=== PATIENT | female | born 1935 | race African-American/Black ===

== ENCOUNTER 2022-01-17 21:45 | Inpatient (IN) | payer MEDICARE ==
[~2022-01-17] VITALS: Ht 172.7 cm; Wt 59.0 kg
[~2022-01-17 21:45] MED LIST: ASPI-1497 PO; BUME2TAB34 MT; CALC-889 MT; CARB-299 MT; DIGO125T80 MT; DULO20CA18 MT; FLUT16SP15 BOTHNSTRLS; GABA-533 MT; METO-396 PO; METO2.5T2 MT; POTA20TA82 MT; TOPUD PO
[2022-01-17 22:00] VITALS: BP 130/57
[2022-01-17] MEDS ORDERED: NALOXONE HCL 0.4 MG/ML 1ML VIAL IV PRN (23:00)
[2022-01-17] MEDS ORDERED: IPRATROPIUM/ALBUTEROL 0.5-3(2.5)MG/3ML NEB HHN PRN (23:00)
[2022-01-17] MEDS ORDERED: MAGNESIUM/ALUMINUM HYDROXIDE/SIMETHICONE 30ML UDC PO PRN (23:00)
[2022-01-17] MEDS ORDERED: ONDANSETRON HCL 4MG/2ML INJ IV PRN (23:00)
[2022-01-17] MEDS ORDERED: CLONIDINE 0.1MG TABLET PO PRN (23:00)
[2022-01-17] MEDS: ACETAMINOPHEN 325MG TABLET PO PRN (23:35)
[2022-01-17] MEDS: CEPHALEXIN 250MG CAPSULE PO SCH (23:35)
[2022-01-18] MEDS: CEPHALEXIN 250MG CAPSULE PO SCH ×3 (05:23→17:08)
[2022-01-18 08:00] VITALS: BP 125/47
[2022-01-18] MEDS: FAMOTIDINE 20MG TABLET PO SCH (08:17)
[2022-01-18] MEDS: BUMETANIDE 1MG TABLET PO SCH ×2 (08:17→17:03)
[2022-01-18] MEDS: CALCIUM CARBONATE/VITAMIN D3 500MG TABLET PO SCH ×2 (08:17→17:06)
[2022-01-18] MEDS: DOCUSATE SODIUM 100MG CAPSULE PO SCH ×2 (08:17→17:02)
[2022-01-18] MEDS: CARBIDOPA/LEVODOPA 25/100MG TABLET PO SCH ×4 (08:18→22:06)
[2022-01-18] MEDS: DULOXETINE HCL 20MG DR CAPSULE PO SCH (08:20)
[2022-01-18 08:22] LABS: HEMATOCRIT. 26.3 % (36.0-48.0); HEMOGLOBIN. 8.8 g/dL (12.0-16.0); MEAN CORPUSCULAR HEMOGLOBIN 26.8 pg (28.0-32.0); MEAN CORPUSCULAR VOLUME 80.6 fL (81.0-99.0); MEAN PLATELET VOLUME 9.2 fl (7.4-10.4); PLATELET 206 x1000/uL (130-400); RED BLOOD CELL COUNT 3.26 mill/uL (4.2-5.4)
[2022-01-18] MEDS: BACITRACIN 15GM TUBE TOP SCH (08:22)
[2022-01-18 08:29] LABS: CHLORIDE 101 mEq/L (98-107)
[2022-01-18] MEDS: HYDROCODONE/ACETAMINOPHEN 5/325MG TABLET PO PRN (12:39)
[2022-01-18 13:13] LABS: CLARITY URINE CLEAR (CLEAR); COLOR URINE YELLOW (YELLOW); KETONES URINE TRACE (NEGATIVE); LEUKOCYTE ESTERASE URINE NEGATIVE (NEGATIVE); NITRITE URINE NEGATIVE (NEGATIVE); OCCULT BLOOD URINE NEGATIVE (NEGATIVE); PROTEIN URINE NEGATIVE (NEGATIVE); SPECIFIC GRAVITY URINE 1.016 (1.005-1.030)
[2022-01-18 13:28] LABS: PLATELET ESTIMATE NORMAL
[2022-01-18] MEDS: CALCITONIN,SALMON, 3.7 ML NASAL SPRAY ONENSTRL SCH (17:02)
[2022-01-18] MEDS: DIGOXIN 125MCG TABLET PO SCH (17:08)
[2022-01-18 20:00] VITALS: BP_SYST 105; BP_SYST 97; BP_DIAS 52; BP_DIAS 65
[2022-01-18 21:00] VITALS: BP 112/70
[2022-01-18] MEDS: RYTARY PO SCH (21:00)
[2022-01-18] MEDS: GABAPENTIN 400MG CAPSULE PO SCH (22:06)
[2022-01-19] MEDS: CEPHALEXIN 250MG CAPSULE PO SCH ×4 (02:01→18:43)
[2022-01-19 06:35] LABS: HEMATOCRIT. 25.5 % (36.0-48.0); HEMOGLOBIN. 8.5 g/dL (12.0-16.0); MEAN CORPUSCULAR HEMOGLOBIN 26.7 pg (28.0-32.0); MEAN CORPUSCULAR VOLUME 79.9 fL (81.0-99.0); MEAN PLATELET VOLUME 8.6 fl (7.4-10.4); PLATELET 199 x1000/uL (130-400); RED BLOOD CELL COUNT 3.19 mill/uL (4.2-5.4)
[2022-01-19 07:35] LABS: CHLORIDE 100 mEq/L (98-107)
[2022-01-19 07:48] LABS: TOTAL IRON BINDING CAPACITY 324 ug/dL (250-450)
[2022-01-19 08:00] VITALS: BP 108/50
[2022-01-19 08:16] LABS: FOLIC ACID (FOLATE) SERUM 10.1 ng/mL (>5.38)
[2022-01-19] MEDS: DULOXETINE HCL 20MG DR CAPSULE PO SCH (08:47)
[2022-01-19] MEDS: FAMOTIDINE 20MG TABLET PO SCH (08:47)
[2022-01-19] MEDS: CALCIUM CARBONATE/VITAMIN D3 500MG TABLET PO SCH ×2 (08:51→18:17)
[2022-01-19] MEDS: BUMETANIDE 1MG TABLET PO SCH ×2 (08:58→18:19)
[2022-01-19] MEDS: DOCUSATE SODIUM 100MG CAPSULE PO SCH ×2 (08:59→18:17)
[2022-01-19] MEDS: CARBIDOPA/LEVODOPA 25/100MG TABLET PO SCH ×4 (09:04→22:23)
[2022-01-19] MEDS: CALCITONIN,SALMON, 3.7 ML NASAL SPRAY ONENSTRL SCH (09:05)
[2022-01-19] MEDS: BACITRACIN 15GM TUBE TOP SCH (10:29)
[2022-01-19] MEDS ORDERED: POTASSIUM CHLORIDE 20MEQ TABLET SR PO NR (14:45)
[2022-01-19 16:04] LABS: PLATELET ESTIMATE NORMAL
[2022-01-19] MEDS ORDERED: VANCOMYCIN 1500MG in DEXTROSE 5% WATER 250ML IV NR (18:00)
[2022-01-19] MEDS: FERROUS SULFATE 325MG TABLET PO SCH (18:17)
[2022-01-19] MEDS: HYDROCODONE/ACETAMINOPHEN 5/325MG TABLET PO PRN ×2 (18:22→18:23)
[2022-01-19] MEDS: DIGOXIN 125MCG TABLET PO SCH (18:42)
[2022-01-19 20:28] VITALS: BP 112/38
[2022-01-19] MEDS: RYTARY PO SCH (21:00)
[2022-01-19] MEDS: GABAPENTIN 400MG CAPSULE PO SCH (22:24)
[2022-01-20] MEDS: CEPHALEXIN 250MG CAPSULE PO SCH ×4 (06:26→17:08)
[2022-01-20 07:18] LABS: BASOPHILS % 0.5 % (0.0-2.0); EOSINOPHILS % 0.5 % (0.0-5.0); HEMOGLOBIN. 8.1 g/dL (12.0-16.0); LYMPHOCYTES % 8.5 % (20.0-50.0); MEAN CORPUSCULAR HEMOGLOBIN 26.5 pg (28.0-32.0); MEAN CORPUSCULAR VOLUME 78.6 fL (81.0-99.0); MEAN PLATELET VOLUME 8.8 fl (7.4-10.4); MONOCYTES % 11.5 % (2.0-8.0); PLATELET 199 x1000/uL (130-400); RED BLOOD CELL COUNT 3.05 mill/uL (4.2-5.4); RED CELL DISTRIBUTION WIDTH 17.3 % (11.6-14.6)
[2022-01-20 08:00] VITALS: BP 106/54
[2022-01-20] MEDS: DULOXETINE HCL 20MG DR CAPSULE PO SCH (08:34)
[2022-01-20] MEDS: DOCUSATE SODIUM 100MG CAPSULE PO SCH ×2 (08:34→17:07)
[2022-01-20] MEDS: FERROUS SULFATE 325MG TABLET PO SCH ×3 (08:34→17:08)
[2022-01-20] MEDS: CALCITONIN,SALMON, 3.7 ML NASAL SPRAY ONENSTRL SCH (08:34)
[2022-01-20] MEDS: FAMOTIDINE 20MG TABLET PO SCH (08:34)
[2022-01-20] MEDS: BUMETANIDE 1MG TABLET PO SCH ×2 (08:35→17:00)
[2022-01-20] MEDS: ASCORBIC ACID 500 MG TABLET PO SCH (08:35)
[2022-01-20] MEDS: CALCIUM CARBONATE/VITAMIN D3 500MG TABLET PO SCH ×2 (08:35→17:07)
[2022-01-20] MEDS: CARBIDOPA/LEVODOPA 25/100MG TABLET PO SCH ×4 (08:35→22:32)
[2022-01-20] MEDS: BACITRACIN 15GM TUBE TOP SCH (08:36)
[2022-01-20 09:45] LABS: CHLORIDE 101 mEq/L (98-107)
[2022-01-20] MEDS: HYDROCODONE/ACETAMINOPHEN 5/325MG TABLET PO PRN (09:47)
[2022-01-20] MEDS ORDERED: POTASSIUM CHLORIDE 10MEQ TABLET SR PO NR (12:00)
[2022-01-20] MEDS ORDERED: VANCOMYCIN 1GM PMX (XELLIA) 200 ML IV SCH (12:00)
[2022-01-20] MEDS ORDERED: VANCOMYCIN 750MG PREMIX 150 ML IV SCH (12:00)
[2022-01-20] MEDS: DIGOXIN 125MCG TABLET PO SCH (17:21)
[2022-01-20 20:00] VITALS: BP 112/48
[2022-01-20] MEDS: RYTARY PO SCH (21:00)
[2022-01-20] MEDS: GABAPENTIN 400MG CAPSULE PO SCH (22:31)
[2022-01-20] MEDS: CEFAZOLIN 1000MG PREMIX 50 ML IV SCH (22:31)
[2022-01-20 23:00] VITALS: BP 118/60
[2022-01-21] MEDS: CEFAZOLIN 1000MG PREMIX 50 ML IV SCH ×3 (05:49→20:28)
[2022-01-21] MEDS: CEPHALEXIN 250MG CAPSULE PO SCH ×3 (05:49→12:40)
[2022-01-21] MEDS: BUMETANIDE 1MG TABLET PO SCH ×2 (07:36→15:38)
[2022-01-21 08:00] VITALS: BP 100/47
[2022-01-21] MEDS: BACITRACIN 15GM TUBE TOP SCH (08:04)
[2022-01-21] MEDS: CALCITONIN,SALMON, 3.7 ML NASAL SPRAY ONENSTRL SCH (08:04)
[2022-01-21] MEDS: DULOXETINE HCL 20MG DR CAPSULE PO SCH (08:05)
[2022-01-21] MEDS: CARBIDOPA/LEVODOPA 25/100MG TABLET PO SCH ×4 (08:05→20:28)
[2022-01-21] MEDS: FERROUS SULFATE 325MG TABLET PO SCH ×3 (08:05→18:13)
[2022-01-21] MEDS: CALCIUM CARBONATE/VITAMIN D3 500MG TABLET PO SCH ×2 (08:05→18:13)
[2022-01-21] MEDS: DOCUSATE SODIUM 100MG CAPSULE PO SCH ×2 (08:05→18:13)
[2022-01-21] MEDS: FAMOTIDINE 20MG TABLET PO SCH (08:05)
[2022-01-21] MEDS: ASCORBIC ACID 500 MG TABLET PO SCH (08:07)
[2022-01-21] MEDS: HYDROCODONE/ACETAMINOPHEN 5/325MG TABLET PO PRN (11:32)
[2022-01-21] MEDS: DIGOXIN 125MCG TABLET PO SCH (18:21)
[2022-01-21 20:00] VITALS: BP 131/68
[2022-01-21] MEDS: RYTARY PO SCH (20:28)
[2022-01-21] MEDS: GABAPENTIN 400MG CAPSULE PO SCH (20:28)
[2022-01-22] MEDS: CEFAZOLIN 1000MG PREMIX 50 ML IV SCH ×3 (03:13→20:26)
[2022-01-22] MEDS: BUMETANIDE 1MG TABLET PO SCH ×2 (06:20→16:00)
[2022-01-22 06:27] LABS: CHLORIDE 101 mEq/L (98-107)
[2022-01-22 06:32] LABS: HEMATOCRIT. 23.2 % (36.0-48.0); HEMOGLOBIN. 7.8 g/dL (12.0-16.0); MEAN CORPUSCULAR HEMOGLOBIN 26.6 pg (28.0-32.0); MEAN CORPUSCULAR VOLUME 79.3 fL (81.0-99.0); MEAN PLATELET VOLUME 8.5 fl (7.4-10.4); RED BLOOD CELL COUNT 2.93 mill/uL (4.2-5.4)
[2022-01-22 08:00] VITALS: BP 112/53
[2022-01-22] MEDS: DOCUSATE SODIUM 100MG CAPSULE PO SCH ×2 (08:56→17:30)
[2022-01-22] MEDS: ASCORBIC ACID 500 MG TABLET PO SCH (08:56)
[2022-01-22] MEDS: CALCIUM CARBONATE/VITAMIN D3 500MG TABLET PO SCH ×2 (08:56→17:30)
[2022-01-22] MEDS: FERROUS SULFATE 325MG TABLET PO SCH ×3 (08:56→17:31)
[2022-01-22] MEDS: FAMOTIDINE 20MG TABLET PO SCH (08:56)
[2022-01-22] MEDS: CARBIDOPA/LEVODOPA 25/100MG TABLET PO SCH ×4 (08:56→20:29)
[2022-01-22] MEDS: DULOXETINE HCL 20MG DR CAPSULE PO SCH (08:56)
[2022-01-22] MEDS: CALCITONIN,SALMON, 3.7 ML NASAL SPRAY ONENSTRL SCH (09:00)
[2022-01-22] MEDS: BACITRACIN 15GM TUBE TOP SCH (09:00)
[2022-01-22 09:14] LABS: ATYPICAL LYMPHOCYTES 1; PLATELET ESTIMATE NORMAL
[2022-01-22] MEDS ORDERED: POTASSIUM CHLORIDE 20MEQ TABLET SR PO NR (09:15)
[2022-01-22 09:16] LABS: PLATELET 218 x1000/uL (130-400)
[2022-01-22] MEDS: DIGOXIN 125MCG TABLET PO SCH (17:30)
[2022-01-22 20:00] VITALS: BP 107/44
[2022-01-22] MEDS: GABAPENTIN 400MG CAPSULE PO SCH (20:27)
[2022-01-22] MEDS: RYTARY PO SCH (20:28)
[2022-01-23] MEDS: CEFAZOLIN 1000MG PREMIX 50 ML IV SCH ×3 (03:20→21:20)
[2022-01-23 06:27] LABS: CHLORIDE 102 mEq/L (98-107)
[2022-01-23] MEDS: BUMETANIDE 1MG TABLET PO SCH ×2 (06:37→16:44)
[2022-01-23] MEDS: CARBIDOPA/LEVODOPA 25/100MG TABLET PO SCH ×4 (06:44→21:00)
[2022-01-23 08:00] VITALS: BP 97/38
[2022-01-23] MEDS: DOCUSATE SODIUM 100MG CAPSULE PO SCH ×2 (08:24→16:43)
[2022-01-23] MEDS: ASCORBIC ACID 500 MG TABLET PO SCH (08:25)
[2022-01-23] MEDS: DULOXETINE HCL 20MG DR CAPSULE PO SCH (08:25)
[2022-01-23] MEDS: CALCITONIN,SALMON, 3.7 ML NASAL SPRAY ONENSTRL SCH (08:25)
[2022-01-23] MEDS: FAMOTIDINE 20MG TABLET PO SCH (08:25)
[2022-01-23] MEDS: FERROUS SULFATE 325MG TABLET PO SCH ×3 (08:27→16:43)
[2022-01-23] MEDS: CALCIUM CARBONATE/VITAMIN D3 500MG TABLET PO SCH ×2 (08:27→16:42)
[2022-01-23] MEDS: ACETAMINOPHEN 325MG TABLET PO PRN (10:37)
[2022-01-23] MEDS ORDERED: NALOXONE HCL 0.4MG/ML VIAL IV PRN (11:30)
[2022-01-23] MEDS ORDERED: HYDROCODONE/ACETAMINOPHEN 5/325MG TABLET PO PRN (11:30)
[2022-01-23] MEDS: BACITRACIN 15GM TUBE TOP SCH (12:33)
[2022-01-23] MEDS: DIGOXIN 125MCG TABLET PO SCH (16:43)
[2022-01-23 16:47] VITALS: BP 108/43
[2022-01-23 20:00] VITALS: BP 128/46
[2022-01-23] MEDS: GABAPENTIN 400MG CAPSULE PO SCH (21:20)
[2022-01-23] MEDS: RYTARY PO SCH (21:20)
[2022-01-24] MEDS: CEFAZOLIN 1000MG PREMIX 50 ML IV SCH ×3 (05:36→20:44)
[2022-01-24 06:13] LABS: CHLORIDE 101 mEq/L (98-107)
[2022-01-24 06:40] LABS: BASOPHILS % 1.2 % (0.0-2.0); EOSINOPHILS % 2.9 % (0.0-5.0); HEMATOCRIT. 24.8 % (36.0-48.0); HEMOGLOBIN. 8.2 g/dL (12.0-16.0); LYMPHOCYTES % 17.1 % (20.0-50.0); MEAN CORPUSCULAR HEMOGLOBIN 26.4 pg (28.0-32.0); MEAN CORPUSCULAR VOLUME 80.5 fL (81.0-99.0); MEAN PLATELET VOLUME 8.4 fl (7.4-10.4); MONOCYTES % 12.1 % (2.0-8.0); NEUTROPHILS % 66.7 % (40.0-76.0); PLATELET 250 x1000/uL (130-400); RED BLOOD CELL COUNT 3.09 mill/uL (4.2-5.4)
[2022-01-24] MEDS: BUMETANIDE 1MG TABLET PO SCH ×2 (06:55→16:43)
[2022-01-24 08:00] VITALS: BP 124/48
[2022-01-24] MEDS ORDERED: POTASSIUM CHLORIDE 20MEQ/PACKET PO NR (08:45)
[2022-01-24] MEDS: ASCORBIC ACID 500 MG TABLET PO SCH (08:58)
[2022-01-24] MEDS: FAMOTIDINE 20MG TABLET PO SCH (08:58)
[2022-01-24] MEDS: CARBIDOPA/LEVODOPA 25/100MG TABLET PO SCH ×4 (08:58→20:46)
[2022-01-24] MEDS: BACITRACIN 15GM TUBE TOP SCH (08:58)
[2022-01-24] MEDS: DOCUSATE SODIUM 100MG CAPSULE PO SCH ×2 (08:58→16:43)
[2022-01-24] MEDS: FERROUS SULFATE 325MG TABLET PO SCH ×3 (08:58→16:43)
[2022-01-24] MEDS: CALCIUM CARBONATE/VITAMIN D3 500MG TABLET PO SCH ×2 (08:58→16:43)
[2022-01-24] MEDS: CALCITONIN,SALMON, 3.7 ML NASAL SPRAY ONENSTRL SCH (08:58)
[2022-01-24] MEDS: DULOXETINE HCL 20MG DR CAPSULE PO SCH (08:58)
[2022-01-24] MEDS: DIGOXIN 125MCG TABLET PO SCH (18:05)
[2022-01-24 20:00] VITALS: BP 118/53
[2022-01-24] MEDS: GABAPENTIN 400MG CAPSULE PO SCH (20:44)
[2022-01-24] MEDS: RYTARY PO SCH (20:45)
[2022-01-25] MEDS: CEFAZOLIN 1000MG PREMIX 50 ML IV SCH ×3 (04:51→20:44)
[2022-01-25] MEDS: BUMETANIDE 1MG TABLET PO SCH ×2 (06:28→15:28)
[2022-01-25 08:00] VITALS: BP 91/38
[2022-01-25] MEDS: CALCITONIN,SALMON, 3.7 ML NASAL SPRAY ONENSTRL SCH (09:38)
[2022-01-25] MEDS: DOCUSATE SODIUM 100MG CAPSULE PO SCH ×2 (09:38→17:50)
[2022-01-25] MEDS: FERROUS SULFATE 325MG TABLET PO SCH ×3 (09:38→17:47)
[2022-01-25] MEDS: ASCORBIC ACID 500 MG TABLET PO SCH (09:38)
[2022-01-25] MEDS: CARBIDOPA/LEVODOPA 25/100MG TABLET PO SCH ×4 (09:38→20:44)
[2022-01-25] MEDS: DULOXETINE HCL 20MG DR CAPSULE PO SCH (09:38)
[2022-01-25] MEDS: CALCIUM CARBONATE/VITAMIN D3 500MG TABLET PO SCH ×2 (09:38→17:47)
[2022-01-25] MEDS: FAMOTIDINE 20MG TABLET PO SCH (09:39)
[2022-01-25] MEDS: BACITRACIN 15GM TUBE TOP SCH (09:39)
[2022-01-25] MEDS: DIGOXIN 125MCG TABLET PO SCH (17:52)
[2022-01-25 20:00] VITALS: BP 119/50
[2022-01-25] MEDS: GABAPENTIN 400MG CAPSULE PO SCH (20:43)
[2022-01-25] MEDS: RYTARY PO SCH (20:44)
[2022-01-26] MEDS: CEFAZOLIN 1000MG PREMIX 50 ML IV SCH ×3 (04:25→22:29)
[2022-01-26] MEDS: BUMETANIDE 1MG TABLET PO SCH ×2 (06:25→17:25)
[2022-01-26 06:31] LABS: CHLORIDE 101 mEq/L (98-107)
[2022-01-26 06:36] LABS: BASOPHILS % 1.2 % (0.0-2.0); EOSINOPHILS % 2.9 % (0.0-5.0); HEMATOCRIT. 24.9 % (36.0-48.0); HEMOGLOBIN. 8.2 g/dL (12.0-16.0); MEAN CORPUSCULAR HEMOGLOBIN 26.3 pg (28.0-32.0); MEAN CORPUSCULAR VOLUME 79.8 fL (81.0-99.0); MEAN PLATELET VOLUME 8.2 fl (7.4-10.4); MONOCYTES % 12.5 % (2.0-8.0); NEUTROPHILS % 62.4 % (40.0-76.0); PLATELET 272 x1000/uL (130-400); RED BLOOD CELL COUNT 3.12 mill/uL (4.2-5.4); RED CELL DISTRIBUTION WIDTH 17.5 % (11.6-14.6)
[2022-01-26 07:50] VITALS: BP 117/50
[2022-01-26] MEDS: CALCIUM CARBONATE/VITAMIN D3 500MG TABLET PO SCH ×2 (09:35→17:30)
[2022-01-26] MEDS: FAMOTIDINE 20MG TABLET PO SCH (09:35)
[2022-01-26] MEDS: FERROUS SULFATE 325MG TABLET PO SCH ×3 (09:36→17:30)
[2022-01-26] MEDS: ASCORBIC ACID 500 MG TABLET PO SCH (09:36)
[2022-01-26] MEDS: DULOXETINE HCL 20MG DR CAPSULE PO SCH (09:36)
[2022-01-26] MEDS: DOCUSATE SODIUM 100MG CAPSULE PO SCH ×2 (09:36→17:30)
[2022-01-26] MEDS: CARBIDOPA/LEVODOPA 25/100MG TABLET PO SCH ×4 (09:37→21:00)
[2022-01-26] MEDS: BACITRACIN 15GM TUBE TOP SCH (09:38)
[2022-01-26] MEDS: CALCITONIN,SALMON, 3.7 ML NASAL SPRAY ONENSTRL SCH (09:38)
[2022-01-26] MEDS ORDERED: POTASSIUM CHLORIDE 20MEQ TABLET SR PO NR (12:30)
[2022-01-26] MEDS: DIGOXIN 125MCG TABLET PO SCH ×2 (17:23→17:31)
[2022-01-26 19:09] LABS: 25-HYDROXY VITAMIN D3 21 ng/mL (.)
[2022-01-26 20:00] VITALS: BP 107/44
[2022-01-26] MEDS: GABAPENTIN 400MG CAPSULE PO SCH (21:17)
[2022-01-26] MEDS: RYTARY PO SCH (21:17)
[2022-01-27] MEDS: BUMETANIDE 1MG TABLET PO SCH ×2 (06:34→16:00)
[2022-01-27] MEDS: CEFAZOLIN 1000MG PREMIX 50 ML IV SCH ×3 (06:43→20:28)
[2022-01-27 07:49] VITALS: BP 110/52
[2022-01-27 08:00] VITALS: BP 110/52
[2022-01-27] MEDS: FAMOTIDINE 20MG TABLET PO SCH (08:02)
[2022-01-27] MEDS: DOCUSATE SODIUM 100MG CAPSULE PO SCH ×2 (08:03→17:15)
[2022-01-27] MEDS: CARBIDOPA/LEVODOPA 25/100MG TABLET PO SCH ×4 (08:03→21:00)
[2022-01-27] MEDS: POTASSIUM CHLORIDE 20MEQ TABLET SR PO SCH (08:03)
[2022-01-27] MEDS: ASCORBIC ACID 500 MG TABLET PO SCH (08:03)
[2022-01-27] MEDS: FERROUS SULFATE 325MG TABLET PO SCH ×3 (08:03→17:15)
[2022-01-27] MEDS: CALCIUM CARBONATE/VITAMIN D3 500MG TABLET PO SCH ×2 (08:03→17:15)
[2022-01-27] MEDS: DULOXETINE HCL 20MG DR CAPSULE PO SCH (08:03)
[2022-01-27] MEDS: CALCITONIN,SALMON, 3.7 ML NASAL SPRAY ONENSTRL SCH (08:06)
[2022-01-27] MEDS: BACITRACIN 15GM TUBE TOP SCH (12:38)
[2022-01-27] MEDS ORDERED: LIDOCAINE HCL/PF 1% 10 MG/ML 5ML VIAL ONE (14:13)
[2022-01-27] MEDS: DIGOXIN 125MCG TABLET PO SCH (17:16)
[2022-01-27] MEDS ORDERED: ERGOCALCIFEROL 50000UNITS CAPSULE PO SCH (17:30)
[2022-01-27 20:00] VITALS: BP 107/41
[2022-01-27] MEDS: GABAPENTIN 400MG CAPSULE PO SCH (20:30)
[2022-01-27] MEDS: RYTARY PO SCH (21:31)
[2022-01-28] MEDS: CEFAZOLIN 1000MG PREMIX 50 ML IV SCH ×2 (04:11→12:55)
[2022-01-28] MEDS: BUMETANIDE 1MG TABLET PO SCH (06:51)
[2022-01-28 07:14] LABS: CHLORIDE 102 mEq/L (98-107)
[2022-01-28 08:00] VITALS: BP 104/51
[2022-01-28] MEDS: CALCIUM CARBONATE/VITAMIN D3 500MG TABLET PO SCH (09:50)
[2022-01-28] MEDS: FERROUS SULFATE 325MG TABLET PO SCH ×2 (09:50→12:49)
[2022-01-28] MEDS: FAMOTIDINE 20MG TABLET PO SCH (09:50)
[2022-01-28] MEDS: DULOXETINE HCL 20MG DR CAPSULE PO SCH (09:50)
[2022-01-28] MEDS: ASCORBIC ACID 500 MG TABLET PO SCH (09:51)
[2022-01-28] MEDS: DOCUSATE SODIUM 100MG CAPSULE PO SCH (09:51)
[2022-01-28] MEDS: POTASSIUM CHLORIDE 20MEQ TABLET SR PO SCH (09:51)
[2022-01-28] MEDS: CARBIDOPA/LEVODOPA 25/100MG TABLET PO SCH ×2 (09:51→12:49)
[2022-01-28] MEDS: CALCITONIN,SALMON, 3.7 ML NASAL SPRAY ONENSTRL SCH (09:53)
[2022-01-28] MEDS: BACITRACIN 15GM TUBE TOP SCH (09:53)
[2022-01-28] MEDS ORDERED: CEFT1VIA15 IV ×2 (13:41→13:42)
[2022-01-28 13:46] VITALS: BP 104/51
== END 2022-01-28 16:15 | disposition home health service (06) | DRG 562 ==
PROVIDERS: ADMIT Physical Medicine & Rehabilitation Spinal Cord Injury Medicine; ATTEND Internal Medicine
PROC: 02HV33Z Insertion of Infusion Device into Superior Vena Cava, Percutaneous Approach (ICD-10-PCS; principal; 2022-01-27)
PROC: B5181ZA Fluoroscopy of Superior Vena Cava using Low Osmolar Contrast, Guidance (ICD-10-PCS; 2022-01-27)
DX: S52.022A Displaced fracture of olecranon process without intraarticular extension of left ulna, initial encounter for closed fracture (principal); A41.01 Sepsis due to Methicillin susceptible Staphylococcus aureus; S42.402A Unspecified fracture of lower end of left humerus, initial encounter for closed fracture; E46 Unspecified protein-calorie malnutrition; I42.9 Cardiomyopathy, unspecified; M48.56XA Collapsed vertebra, not elsewhere classified, lumbar region, initial encounter for fracture; M48.54XA Collapsed vertebra, not elsewhere classified, thoracic region, initial encounter for fracture; F33.1 Major depressive disorder, recurrent, moderate; Z68.1 Body mass index [BMI] 19.9 or less, adult; J90 Pleural effusion, not elsewhere classified; E87.6 Hypokalemia; D64.9 Anemia, unspecified; I50.9 Heart failure, unspecified; G20 Parkinson's disease; W18.39XA Other fall on same level, initial encounter; S81.012A Laceration without foreign body, left knee, initial encounter; N81.10 Cystocele, unspecified; I36.1 Nonrheumatic tricuspid (valve) insufficiency; E55.9 Vitamin D deficiency, unspecified; E61.1 Iron deficiency; R26.9 Unspecified abnormalities of gait and mobility; R13.10 Dysphagia, unspecified; M81.0 Age-related osteoporosis without current pathological fracture; I27.20 Pulmonary hypertension, unspecified; S30.0XXA Contusion of lower back and pelvis, initial encounter; K57.30 Diverticulosis of large intestine without perforation or abscess without bleeding; F41.9 Anxiety disorder, unspecified; R26.89 Other abnormalities of gait and mobility; Y93.89 Activity, other specified; Y92.89 Other specified places as the place of occurrence of the external cause; Y99.8 Other external cause status; Z86.73 Personal history of transient ischemic attack (TIA), and cerebral infarction without residual deficits; Z95.3 Presence of xenogenic heart valve; Z82.49 Family history of ischemic heart disease and other diseases of the circulatory system; L98.499 Non-pressure chronic ulcer of skin of other sites with unspecified severity; S41.112A Laceration without foreign body of left upper arm, initial encounter; M47.9 Spondylosis, unspecified
CPT/HCPCS: 36415; 36573; 71046; 80048; 80053; 80202; 81003; 82040; 82140; 82306; 82607; 82728; 82746; 83540; 83550; 84134; 84145; 84443; 85025; 87070; 87077; 87186; 92523; 92610; 93306; 93970; 97110; 97112; 97116; 97150; 97162; 97166; 97530; 97535; A6261; C1725; C1769; C1893; J0690; J3370; J3490; J7060